=== PATIENT | female | born 1950 | race Caucasian/White ===

== ENCOUNTER 2024-12-20 21:57 | Inpatient (IN) | payer BC, MEDICARE ==
[2024-12-20] MEDS ORDERED: dilTIAZem 25 MG/5 ML VIAL ONE ×2 (22:14→22:42)
[2024-12-20 22:26] LABS: #Basophils 0.04 10x3/uL (0.0-0.2); #Eosinophils 0.05 10x3/uL (0.0-0.5); #Monocytes 0.24 10x3/uL (0.0-1.1); #Neutrophils 4.90 10x3/uL (1.5-8.4); %Basophils 0.6 % (0.0-2.0); %Eosinophils 0.7 % (0.0-6.0); %Lymphocytes 27.0 % (18.0-47.0); %Monocytes 3.3 % (0.0-10.0); %Neutrophils 68.3 % (40.0-75.0); Hematocrit 42.3 % (34.9-44.5); Hemoglobin 13.6 g/dL (12.0-15.5); Mean Corpuscular Hemoglobin 25.0 pg (27.0-33.0); Mean Corpuscular Volume 77.8 fL (81.6-98.3); Platelet Count 210 10x3/uL (150-450); Red Blood Cell (RBC) Count 5.44 10x6/uL (3.90-5.03); White Blood Cell (WBC) Count 7.18 10x3/uL (3.5-10.5)
[2024-12-20 22:42] LABS: ALT (SGPT) 16 U/L (Less than 34); AST (SGOT) 23 U/L (11-34); Albumin 4.3 g/dL (3.1-4.5); Alkaline Phosphatase 90 U/L (40-110); Anion Gap 14 mmol/L (10-20); BUN (Urea Nitrogen) 23 mg/dL (9.8-20.1); Bilirubin, Total 0.4 mg/dL (0.3-1.2); Calc. Creatinine Clearance 0 mL/min (70-130); Calcium 9.3 mg/dL (7.8-10.44); Carbon Dioxide 25 mmol/L (23-31); Chloride 104 mmol/L (98-107); Globulin 3.6 g/dL (2.4-3.5); Glucose 156 mg/dL (83-110); Potassium 3.8 mmol/L (3.5-5.1); Sodium 139 mmol/L (136-145)
[2024-12-20 22:46] LABS: Troponin I Less than 0.010 ng/mL (< 0.028)
[2024-12-20] MEDS ORDERED: Digoxin 0.5 MG/2 ML AMP ONE (23:33)
[2024-12-21] MEDS ORDERED: Acetaminophen 500 MG TAB ONE (00:04)
[2024-12-21] MEDS ORDERED: Ondansetron PF 4 MG/2 ML Vial IVP PRN (00:58)
[2024-12-21] MEDS ORDERED: Electrolyte Replacement Protocol 1 EACH FS PRN (01:00)
[2024-12-21] MEDS ORDERED: Sodium Chloride 0.65% Nasal 44 ML BOT EA NARE PRN (01:58)
[2024-12-21] MEDS ORDERED: Benzonatate 100 MG CAP PO PRN (01:58)
[2024-12-21] MEDS ORDERED: Benzocaine/Menthol 1 LOZ LOZ PO PRN (01:58)
[2024-12-21] MEDS ORDERED: Senokot S 8.6-50 MG TAB PO PRN (01:58)
[2024-12-21] MEDS ORDERED: Artificial Tear Ophth Sol 15 ML BOT EA EYE PRN (01:58)
[2024-12-21 04:16] LABS: Troponin I Less than 0.010 ng/mL (< 0.028)
[2024-12-21 06:06] VITALS: BP 138/81
[2024-12-21] MEDS: Diltiazem HCl/D5W 125 MG in Premix 1 BAG IVPB SCH (07:45)
[2024-12-21] MEDS: dilTIAZem 30 MG TAB PO SCH (08:37)
[2024-12-21 08:42] LABS: Anion Gap 14 mmol/L (10-20); BUN (Urea Nitrogen) 22 mg/dL (9.8-20.1); Calc. Creatinine Clearance 123 mL/min (70-130); Calcium 8.6 mg/dL (7.8-10.44); Carbon Dioxide 23 mmol/L (23-31); Chloride 111 mmol/L (98-107); Glucose 99 mg/dL (83-110); Magnesium 1.9 mg/dL (1.6-2.6); Potassium 3.7 mmol/L (3.5-5.1); Sodium 144 mmol/L (136-145)
[2024-12-21] MEDS ORDERED: Diltiazem HCl/D5W 125 MG in Premix 1 BAG IVPB SCH (08:45)
[2024-12-21] MEDS: Digoxin 0.5 MG/2 ML AMP SLOW IVP SCH ×2 (08:50→16:37)
[2024-12-21] MEDS: Apixaban 5 MG TAB PO SCH (08:55)
[2024-12-21] MEDS: Aspirin 81 mg Enteric Coated Tablet PO SCH (08:55)
[2024-12-21] MEDS ORDERED: Famotidine 20 MG TAB PO SCH (09:00)
[2024-12-21] MEDS ORDERED: Famotidine/PF 20 mg/2ml Vial SLOW IVP SCH (09:00)
[2024-12-21] MEDS: Amiodarone In Dextrose 150 MG in Premix 1 BAG IVPB SCH (09:09)
[2024-12-21] MEDS: Magnesium 2 GM/50 ML(in water) 2 GM in Premix 1 BAG IVPB SCH (09:21)
[2024-12-21] MEDS: Acetaminophen 325 MG TAB PO PRN (09:29)
[2024-12-21] MEDS: Amiodarone In Dextrose 360 MG in Premix 1 BAG IVPB SCH (09:32)
[2024-12-21] MEDS: Pantoprazole 40 MG DR.TAB PO SCH ×2 (10:38→20:50)
[2024-12-21] MEDS: Senokot S 8.6-50 MG TAB PO SCH (20:50)
[2024-12-21] MEDS: Rosuvastatin 10 MG TAB PO SCH (20:50)
[2024-12-22 03:45] LABS: #Basophils 0.05 10x3/uL (0.0-0.2); #Eosinophils 0.27 10x3/uL (0.0-0.5); #Monocytes 0.38 10x3/uL (0.0-1.1); #Neutrophils 2.64 10x3/uL (1.5-8.4); %Basophils 0.8 % (0.0-2.0); %Eosinophils 4.3 % (0.0-6.0); %Lymphocytes 46.8 % (18.0-47.0); %Monocytes 6.0 % (0.0-10.0); %Neutrophils 41.9 % (40.0-75.0); Hematocrit 37.2 % (34.9-44.5); Hemoglobin 11.8 g/dL (12.0-15.5); Mean Corpuscular Hemoglobin 25.1 pg (27.0-33.0); Mean Corpuscular Volume 79.0 fL (81.6-98.3); Platelet Count 195 10x3/uL (150-450); Red Blood Cell (RBC) Count 4.71 10x6/uL (3.90-5.03); White Blood Cell (WBC) Count 6.30 10x3/uL (3.5-10.5)
[2024-12-22 04:00] LABS: Anion Gap 12 mmol/L (10-20); BUN (Urea Nitrogen) 22 mg/dL (9.8-20.1); Calc. Creatinine Clearance 116 mL/min (70-130); Calcium 8.3 mg/dL (7.8-10.44); Carbon Dioxide 26 mmol/L (23-31); Chloride 107 mmol/L (98-107); Glucose 100 mg/dL (83-110); Magnesium 1.9 mg/dL (1.6-2.6); Potassium 3.6 mmol/L (3.5-5.1); Sodium 141 mmol/L (136-145)
[2024-12-22 06:01] VITALS: BMI 37.5
[2024-12-22 06:03] VITALS: TEMP 97.6
[2024-12-22] MEDS: Magnesium Oxide 400 MG TAB PO SCH (09:16)
[2024-12-22] MEDS: Magnesium 2 GM/50 ML(in water) 2 GM in Premix 1 BAG IVPB SCH (09:16)
[2024-12-22] MEDS: Amiodarone 200 MG TAB PO SCH (09:16)
== END 2024-12-22 14:45 | disposition home or self-care (01) | DRG 309 ==
LOC: CSHERS 21:57 → CSHICU 12-21 00:58
PROVIDERS: ADMIT Family Medicine; ATTEND Internal Medicine
DX: I49.5 Sick sinus syndrome (principal); I48.19 Other persistent atrial fibrillation; E78.5 Hyperlipidemia, unspecified; K21.9 Gastro-esophageal reflux disease without esophagitis; M54.50 Low back pain, unspecified; K59.09 Other constipation; E87.6 Hypokalemia; E83.42 Hypomagnesemia; I10 Essential (primary) hypertension; Z86.73 Personal history of transient ischemic attack (TIA), and cerebral infarction without residual deficits; Z98.890 Other specified postprocedural states; Z88.7 Allergy status to serum and vaccine; Z79.899 Other long term (current) drug therapy; Z79.01 Long term (current) use of anticoagulants; Z79.82 Long term (current) use of aspirin
CPT/HCPCS: 36415; 71045; 80048; 80053; 83735; 83880; 84100; 84443; 84484; 85025; 93005; 93010; 93306; 96374; 96375; 96376; J0283; J1160; J2060; J3360; J3475